=== PATIENT | male | born 1985 | race African-American/Black ===

== ENCOUNTER 2023-11-29 12:45 | Inpatient (IN) | payer OTHER ==
[2023-11-29 13:01] VITALS: BMI 26.7
[2023-11-29] MEDS ORDERED: BISMUTH SUBSALICYLATE 262 MG/15 ML BTL PO PRN (14:11)
[2023-11-29] MEDS ORDERED: IBUPROFEN 400 MG TABLET (FP) PO PRN (14:11)
[2023-11-29] MEDS ORDERED: NALOXONE HCL (KLOXXADO) 8 MG SPRAY NS PRN (14:11)
[2023-11-29] MEDS ORDERED: DICYCLOMINE HCL 10 MG CAPSULE PO PRN (14:11)
[2023-11-29] MEDS ORDERED: MAG HYDROX/AL HYDROX/SIMETH 30 ML UNIT-DOSE CUP PO PRN (14:11)
[2023-11-29] MEDS ORDERED: ONDANSETRON *ODT* 4 MG TABLET SL PRN (14:11)
[2023-11-29] MEDS ORDERED: LOPERAMIDE HCL 2 MG CAPSULE PO PRN (14:11)
[2023-11-29] MEDS ORDERED: BENZONATATE 200 MG CAPSULE PO PRN (14:11)
[2023-11-29] MEDS ORDERED: MAGNESIUM HYDROX 2400MG/30ML ORAL SUSPENSION 30 ML CUP PO PRN (14:11)
[2023-11-29] MEDS ORDERED: ACETAMINOPHEN 325 MG TABLET (FP) PO PRN (14:11)
[2023-11-29] MEDS ORDERED: POLYETHYLENE GLYCOL (HEALTHYLAX) 3350 17 GM PACKET PO PRN (14:11)
[2023-11-29] MEDS ORDERED: NALOXONE HCL 0.4 MG/ML VIAL IM PRN (14:11)
[2023-11-29] MEDS ORDERED: guaiFENesin 600 MG TABLET.ER (FP) PO PRN (14:11)
[2023-11-29] MEDS ORDERED: BENZOCAINE/MENTHOL (CHLORASEPTIC ) LOZENGE MM PRN (14:11)
[2023-11-29] MEDS ORDERED: methaDONE HCL 10 MG TABLET (FOR DETOX USE ONLY) ONE (15:03)
[2023-11-29] MEDS ORDERED: PRENATAL VITAMINS W/ FOLIC ACID TABLET (FP) PO ONE (15:03)
[2023-11-29] MEDS ORDERED: NICOTINE 21 MG/24 HOURS TOPICAL PATCH ONE (15:03)
[2023-11-29] MEDS: methaDONE HCL 10 MG TABLET (FOR DETOX USE ONLY) PO ONE (15:07)
[2023-11-29] MEDS: PRENATAL VITAMINS W/ FOLIC ACID TABLET (FP) PO SCH (15:08)
[2023-11-29] MEDS: NICOTINE 21 MG/24 HOURS TOPICAL PATCH TD SCH (15:08)
[2023-11-29] MEDS: chlordiazePOXIDE HCL 25 MG CAPSULE PO SCH (17:17)
[2023-11-29] MEDS: IBUPROFEN 600 MG TABLET (FP) PO PRN (17:17)
[2023-11-29] MEDS: cloNIDine HCL 0.1 MG TABLET PO PRN (17:56)
[2023-11-29] MEDS: THIAMINE HCL 100 MG TABLET (FP) PO SCH (22:09)
[2023-11-29] MEDS: MELATONIN 5 MG TABLETS PO SCH (22:11)
[2023-11-29] MEDS: METHOCARBAMOL 500 MG TABLET PO PRN (22:12)
[2023-11-30] MEDS: chlordiazePOXIDE HCL 25 MG CAPSULE PO PRN (00:47)
[2023-11-30] MEDS: hydrOXYzine PAMOATE 25 MG CAPSULE (FP) PO PRN ×2 (01:19→22:04)
[2023-11-30] MEDS: diazePAM 5 MG TABLET PO ONE (07:48)
[2023-11-30] MEDS: diazePAM 5 MG TABLET PO SCH (10:03)
[2023-11-30 12:25] LABS: HEMATOCRIT 41.6 % (35.4-49); HEMOGLOBIN 14.2 GM/dL (11.7-16.9); MCH 30.4 pg (25.7-33.7); MCHC 34.2 g/dl (32.0-35.9); MEAN CELL VOLUME 88.9 fl (80-96); MEAN PLT VOLUME 7.4 fl (7.5-11.1); PLATELET COUNT 318 10^3/uL (134-434); RBC 4.68 M/mm3 (4.00-5.60); RDW 15.7 % (11.9-15.9); WHITE BLOOD COUNT 6.4 K/mm3 (4.0-10.0)
[2023-11-30 12:45] LABS: CHLORIDE 106 mmol/L (98-107); POTASSIUM 4.3 mmol/L (3.5-5.1); SODIUM 139 mmol/L (136-145)
[2023-11-30 12:59] LABS: ALBUMIN 3.4 g/dl (3.4-5.0); ANION GAP 7 mmol/L (4-13); BLOOD UREA NITROGEN 10.4 mg/dL (7-18); CALCIUM 9.3 mg/dL (8.5-10.1); CO2 26 mmol/L (21-32); GLUCOSE,RANDOM 95 mg/dL (74-106)
[2023-11-30 13:01] LABS: CREATININE 0.8 mg/dL (0.55-1.3); SGOT/AST 18 U/L (15-37); SGPT/ALT 26 U/L (13-61)
[2023-11-30 13:02] LABS: BILIRUBIN,TOTAL 0.3 mg/dL (0.2-1)
[2023-11-30 13:03] LABS: TOT PROT 6.2 g/dl (6.4-8.2)
[2023-11-30 13:04] LABS: ALK PHOS 83 U/L (45-117)
[2023-11-30] MEDS: diazePAM 5 MG TABLET PO PRN (13:19)
[2023-11-30] MEDS: NICOTINE POLACRILEX 2 MG GUM BC PRN (18:07)
[2023-12-01] MEDS ORDERED: chlordiazePOXIDE HCL 25 MG CAPSULE PO SCH (05:00)
[2023-12-01] MEDS: methaDONE HCL 10 MG TABLET (FOR DETOX USE ONLY) PO ONE (09:08)
[2023-12-01 09:38] VITALS: RESP 20
[2023-12-01] MEDS: PNEUMOC 20-VAL CONJ-DIP CRM/PF 0.5 ML SYRINGE IM ONE (11:47)
[2023-12-01 12:58] VITALS: BP 113/76; PULSE 103; TEMP 97.8
[2023-12-02] MEDS ORDERED: chlordiazePOXIDE HCL 10 MG CAPSULE PO PRN
[2023-12-02] MEDS ORDERED: chlordiazePOXIDE HCL 10 MG CAPSULE PO SCH (05:00)
[2023-12-02] MEDS ORDERED: diazePAM 5 MG TABLET PO SCH (06:00)
[2023-12-03] MEDS ORDERED: chlordiazePOXIDE HCL 10 MG CAPSULE PO SCH (05:00)
[2023-12-03] MEDS ORDERED: diazePAM 5 MG TABLET PO SCH (06:00)
[2023-12-03] MEDS ORDERED: methaDONE HCL 10 MG TABLET (FOR DETOX USE ONLY) PO ONE (10:00)
[2023-12-04] MEDS ORDERED: chlordiazePOXIDE HCL 10 MG CAPSULE PO ONE (05:00)
[2023-12-04] MEDS ORDERED: diazePAM 5 MG TABLET PO ONE (06:00)
== END 2023-12-01 16:30 | disposition left against medical advice (07) | DRG 770 ==
LOC: YASAS 12:45 → Y6N 14:24
PROVIDERS: ADMIT Allergy & Immunology; ATTEND Surgery
PROC: HZ2ZZZZ Detoxification Services for Substance Abuse Treatment (ICD-10-PCS; principal; 2023-11-29)
DX: F11.23 Opioid dependence with withdrawal (principal); F10.230 Alcohol dependence with withdrawal, uncomplicated; F14.10 Cocaine abuse, uncomplicated; F12.10 Cannabis abuse, uncomplicated; F17.210 Nicotine dependence, cigarettes, uncomplicated; F19.24 Other psychoactive substance dependence with psychoactive substance-induced mood disorder; Z86.59 Personal history of other mental and behavioral disorders
CPT/HCPCS: 36415; 80053; 80305; 80307; 85027; 86780; 87635; 87811; 90677; 93005; 93010